=== PATIENT | male | born 1950 | race Caucasian/White ===

== ENCOUNTER → 2023-01-01 | Outpatient (CLI) | payer MEDICARE, OTHER, SELFPAY ==
--- NOTE | 2023-01-01 11:30 | RAD_ITS ---
EXAM: XR ABDOMEN, 1 VIEW CLINICAL INDICATION: PERSONAL HISTORY OF URINARY CALCULI -- COPY RESULTS TO IDx TECHNIQUE: 2 frontal supine view of the abdomen/pelvis. COMPARISON: No relevant prior studies available. FINDINGS: LOWER THORAX: No acute pathology. GASTROINTESTINAL TRACT: Unremarkable. Non-obstructive. No bowel or stomach distention. ORGANS: Unremarkable as visualized. No organomegaly. No renal calculi are identified. BONES/JOINTS: No acute pathology. Lower thoracic and lumbar degenerative spurring. Lower lumbar facet arthritis. SOFT TISSUES: No acute pathology. Multiple small rounded calcifications are seen within the lower pelvis, consistent with calcified phleboliths. RAD/Abdomen Single View IMPRESSION: Non-obstructive bowel gas pattern. No renal calculi identified. Small rounded calcifications within the lower pelvis, consistent with phleboliths. Electronically Signed: Uche Del Rio MD at 4:49 EDT ,
== END | disposition home or self-care (01) ==
PROVIDERS: PCP Internal Medicine; Referring Provider Nurse Practitioner; Visit Provider Urology
DX: Z87.442 Personal history of urinary calculi (principal)
CPT/HCPCS: 74018